=== PATIENT | female | born 2000 | race Caucasian/White ===

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

== ENCOUNTER 2025-03-09 09:33 | Emergency (ER) | payer BC ==
--- OUTSIDE RECORDS SUMMARY | 2025-03-09 09:35 | XMS REPORT | Continuity of Care Document ---
Author Name Unknown Address [address] [place] [address] [facility] Address [address] [place] [address] Care Team Providers Care Director Of Operations Name Role Phone PCP, PATIENT DOES NOT HAVE A Primary Care Physic kvng Unavailable KENZIE PETER Attending Clinician Unavailable KENZIE PETER Attending Clinician Unavailable Doctor Unassigned, Price Attending Clinician U MAHI Wright Attending Clinician Unavailable Payers Payer Name Policy Type Policy Number Effective Date Expirati on Date Source [facility] [id number] 2024 00:00:00 Problems Condition Name Condition Details Condition Category Status Onset Date Resolution Date Last Treatment Date Treating Clinician Comments Source Drug ingestion Drug ingestion Disease Active 02-04 00:00: 00 [facility] Allergies, Adverse Reactions, Alerts Allergy Name Allergy Type Status Severity Reaction(s) Onset Date Inactive Date Treating Clinician Comments Source NO KNOWN ALLERGIE S Drug Class Active [facility] Social History Social Habit Start Date Stop Date Quantity Comments Source Sexual orientation U [facility] Sex Assigned At 2000 00:00:00 2000 00:00:00 [facility] Smoking Status Start Date Stop Date Source Tobacco smoking consumption unknown [facility] Encounters Start Date/Time End Date/Time Encounter Type Admission Type Attending [facility] Facility Care Department Encounter ID Source [id number] 15:00:00 2024-11-13 15:00:00 Outpatient KENZIE NOLAN [facility] [id number] [facility] 2020-01-30 00:00:00 2020-01-30 00:00:00 Patient Secure Msg Doctor Unassigned, Price [facility] [id number] [facility] 2020-01-28 11:40:00 2020-01-28 11:40:00 Outpatient MAHI HERNANDEZ [facility] [id number] [facility]
[2025-03-09] MEDS ORDERED: NA CHLORIDE 0.9% 1,000 ML ONE (09:48)
[2025-03-09] MEDS ORDERED: ONDANSETRON 4 MG/2 ML VIAL ONE ×2 (09:48→11:03)
[2025-03-09 10:12] LABS: Absolute Lymphocytes (CBC) 1.3 K/uL (0.7-4.9); Hematocrit 39.1 % (36.0-45.0); Hemoglobin 13.4 g/dL (12.0-15.0); MCH 31.4 pg (27.0-35.0); MCHC 34.2 g/dL (32.0-36.0); MCV 91.8 fL (80-100); MPV 6.7 fL (7.6-11.3); Nucleated RBC Absolute Count 0.0 (0-0); Nucleated Red Blood Cells % 0.0 % (0-0); RBC Red Blood Cell Count 4.26 M/uL (3.86-4.86); White Blood Count 6.40 thou/uL (4.3-10.9)
[2025-03-09 10:28] LABS: ALT/SGPT 29.0 U/L (13-56); AST/SGOT 14.0 U/L (15-37); Albumin 4.1 g/dL (3.4-5.0); Albumin/Globulin Ratio 1.3 (1.1-1.8); Alkaline Phosphatase 42.0 U/L (45-117); Anion Gap 7.6 mEq/L (5.0-15.0); BUN Blood Urea Nitrogen 8.0 mg/dL (7-18); Globulin 3.2 g/dL (2.3-3.5); Glucose Level 95.0 mg/dL (74-106); Lipase 30.0 U/L (13-75); Potassium 3.6 mEq/L (3.5-5.1)
[2025-03-09 10:59] LABS: Urine Crystals Unidentified Few /HPF (None Seen); Urine Culture Reflex Order NOT NEEDED; Urine Microscopic Reflex YN ORDER UMIC; Urine WBC Clump Rare /HPF (None Seen); Urine Yeast (Budding) Few /HPF (None Seen)
--- NOTE | 2025-03-09 11:11 | EDPHYS ---
Physician Documentation [facility] Name: Zoe Chris Age: 24 yrs Sex: Female : 2000 Arrival Date: 03/09/2025 Time: 09:33 Bed 17 Private MD: ED Physician Ramón Cade HPI: 03/09 10:07 This 24 yrs old Female presents to ER via Ambulatory with complaints of sp3 Nausea/Vomiting, Shortness Of Breath. 10:07 24-year-old female with history of ADHD and anxiety presents to the ED with chief sp3 complaint vomiting and diarrhea after being out last night. Patient states she had 2 drinks which is not abnormal for her. She smokes weed daily. She denies any potential bad food intake. She denies any past surgical history, chest pain, back symptoms, pathology, NEWSPAPER OR PERIODICAL EDITOR symptoms, or any other signs or symptoms on ROS at this time. She is on control.. 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 - Infectious Disease History:: Denies. - Social history:: Smoking status: Reported history of juuling and/or vaping. Patient uses street drugs, marijuana. ROS: 10:08 Constitutional: Negative for fever, chills, and weight loss, Eyes: Negative for injury, sp3 pain, redness, and discharge, Neck: Negative for injury, pain, and swelling, Cardiovascular: Negative for chest pain, palpitations, and edema, Respiratory: Negative for shortness of breath, cough, wheezing, and pleuritic chest pain, Back: Negative for injury and pain, MS/Extremity: Negative for injury and deformity, Skin: Negative for injury, rash, and discoloration, Neuro: Negative for headache, weakness, numbness, tingling, and seizure, Psych: Negative for depression, anxiety, suicide ideation, homicidal ideation, and hallucinations, Allergy/Immunology: Negative for hives, rash, and allergies, Endocrine: Negative for neck swelling, polydipsia, polyuria, polyphagia, and marked weight changes, Hematologic/Lymphatic: Negative for swollen nodes, abnormal bleeding, and unusual bruising, 10:08 All other systems are negative, Exam: 10:08 Constitutional: This is a well developed, well nourished patient who is awake, alert, sp3 and in no acute distress. Head/Face: Normocephalic, atraumatic. Eyes: Pupils equal round and reactive to light, extra-ocular motions intact. Lids and lashes normal. Conjunctiva and sclera are non-icteric and not injected. Cornea within normal limits. Periorbital areas with no swelling, redness, or edema. ENT: Nares patent. No nasal discharge, no septal abnormalities noted. External auditory canals are clear. Oropharynx with no redness, swelling, or masses, exudates, or evidence of obstruction, uvula midline. Mucous membranes moist. Neck: Trachea midline, no thyromegaly or masses palpated, and no cervical lymphadenopathy. Supple, full range of motion without nuchal rigidity, or vertebral point tenderness. No Meningismus. Chest/axilla: Normal chest wall appearance and motion. Nontender with no deformity. No lesions are appreciated. Cardiovascular: Regular rate and rhythm with a normal S1 and S2. No gallops, murmurs, or rubs. Normal PMI, no JVD. No pulse deficits. Respiratory: Lungs have equal breath sounds bilaterally, clear to auscultation and percussion. No rales, rhonchi or wheezes noted. No increased work of breathing, no retractions or nasal flaring. Back: No spinal tenderness. No costovertebral tenderness. Full range of motion. Skin: Warm, dry with normal turgor. Normal color with no rashes, no lesions, and no evidence of cellulitis. MS/ Extremity: Pulses equal, no cyanosis. Neurovascular intact. Full, normal range of motion. Neuro: Awake and alert, GCS 15, oriented to person, place, time, and situation. Cranial nerves II-XII grossly intact. Motor strength 5/5 in all extremities. Sensory grossly intact. Cerebellar exam normal. Normal gait. Psych: Awake, alert, with orientation to person, place and time. Behavior, mood, and affect are within normal limits. 10:08 Abdomen/GI: Mild diffuse tenderness without peritoneal signs, rebound or guarding., Vital Signs: 09:48 BP 107 / 74; Pulse 89; Resp 17; Temp 97.7; Pulse Ox 100% ; Weight 41.28 kg; Height 5 jl7 ft. 1 in. ; Pain 6/10; 10:56 BP 111 / 61; Pulse 64; Resp 15; Pulse Ox 99% ; jl7 09:48 Body Mass Index 17.19 (41.28 kg, 154.94 cm) jl7 09:48 Pain Scale: Adult 7 MDM: 09:40 Medical Screening Exam initiated sp3 10:08 Data reviewed: vital signs, nurses notes, lab test result(s). ED course: 24-year-old sp3 female with nausea, vomiting and diarrhea. Differential diagnosis includes gastritis, foodborne illness, other viral pathology, , marijuana-induced GI pathology, among others. I am not highly suspicious of acute abdomen, surgical emergency or any other critical process at this time. We will obtain general labs, UA and test, and administer normal saline and ondansetron for symptomatic control. Vital signs are normal. If workup negative and patient is improved, we will safely discharge patient home. Consider imaging if abnormalities found or patient worsens.. 11:10 ED course: Full workup negative. Patient is feeling better. Will give 1 additional sp3 ondansetron dose prior to discharge.. 03/09 09:47 Order name: CBC with Diff; Complete Time: 10:44 sp3 03/09 09:47 Order name: CMP; Complete Time: 10:44 sp3 03/09 09:47 Order name: Lipase; Complete Time: 10:44 sp3 03/09 09:47 Order name: Lactate w/ 2H reflex if indic.; Complete Time: 10:44 sp3 03/09 09:48 Order name: UA Rfx Elliot Cult if indicated; Complete Time: 11:08 sp3 03/09 09:48 Order name: Test, Urine; Complete Time: 11:08 sp3 03/09 09:47 Order name: IV Saline Lock; Complete Time: 09:59 sp3 03/09 09:47 Order name: Labs collected and sent; Complete Time: 09:59 sp3 Administered Medications: 10:15 Drug: Ondansetron IVP 4 mg IVP once; over 2 minutes Route: IVP; Site: left antecubital; [facility] 10:45 Follow up: Response: No adverse reaction; Nausea is decreased jl7 10:15 Drug: NS 0.9% IV 1000 ml IV at 1 bolus Per protocol; to be given as a bolus over 60 jl7 minutes Route: IV; Rate: 1 bolus; Site: left antecubital; 11:13 Follow up: Response: No adverse reaction; IV Status: Completed infusion; IV Intake: jl7 1000ml 11:13 Drug: Ondansetron IVP 4 mg IVP once; over 2 minutes Route: IVP; Site: left antecubital; jl7 11:21 Follow up: Response: No adverse reaction; Nausea is decreased jl7 Disposition Summary: 03/09/25 11:11 Discharge Ordered Notes: Location: Home sp3 Condition: Stable sp3 Diagnosis - Vomiting, dehydration sp3 Followup: sp3 - With: Private Physician - When: Upon discharge from the Emergency Department - Reason: Continuance of care Discharge Instructions: - Discharge Summary Sheet sp3 - Vomiting, Adult sp3 Forms: - Medication Reconciliation Form sp3 - Antibiotic Education sp3 - Prescription Opioid Use sp3 - Patient Portal Instructions sp3 - Leadership Thank You Letter sp3 Prescriptions: - ondansetron 4 mg Oral Tablet,disintegrating - take 1 tablet ORAL route every 12 hours as needed for nausea and vomiting; 15 sp3 tablet; Refills: 0, Product Selection Permitted Signatures: Dispatcher [employer] Natalya Estrella RN RN jl7 Ramón Cade MD MD sp3 Corrections: (The following items were deleted from the chart) 09:50 09:49 Allergies: No Known Drug Intolerances; jl7 jl7
--- NOTE | 2025-03-09 11:11 | ER ---
Nurse's Notes [facility] Name: Zoe Chris Age: 24 yrs Sex: Female : 2000 Arrival Date: 03/09/2025 Time: 09:33 Bed 17 Private MD: Diagnosis: Vomiting, dehydration Presentation: 03/09 09:48 Chief complaint: Patient states: N/V/D since 0630. Coronavirus screen: At this time, [facility] the client does not indicate any symptoms associated with coronavirus-19. Ebola Screen: No symptoms or risks identified at this time. Initial Sepsis Screen: Does the patient meet any 2 criteria? No. Patient's initial sepsis screen is negative. Does the patient have a suspected source of infection? No. Patient's initial sepsis screen is negative. Risk Assessment: Do you want to hurt yourself or someone else? Patient reports no desire to harm self or others. Onset of symptoms was March 09, 2025 at 06:30. 09:48 Method Of Arrival: Ambulatory [facility] 09:48 Acuity: LINO 3 jl7 Triage Assessment: 09:49 General: Appears in no apparent distress. uncomfortable, ill, Behavior is calm, jl7 cooperative. Pain: Complains of pain in epigastric area Pain currently is 6 out of 10 on a pain scale. GI: Reports diarrhea, nausea, vomiting. Derm: Skin is dry, Skin is pale, Skin temperature is cool. 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 - Infectious Disease History:: Denies. - Social history:: Smoking status: Reported history of juuling and/or vaping. Patient uses street drugs, marijuana. Screenin:15 [facility] ED Fall Risk Assessment (Adult) History of falling in the last 3 months, jl7 including since admission No falls in past 3 months (0 pts) Confusion or Disorientation No (0 pts) Intoxicated or Sedated No (0 pts) Impaired Gait No (0 pts) Mobility Assist Device Used No (0 pt) Altered Elimination No (0 pt) Score/Fall Risk Level 0 - 2 = Low Risk Oriented to surroundings, Maintained a safe environment. Abuse screen: Denies threats or abuse. Denies injuries from another. Nutritional screening: No deficits noted. Tuberculosis screening: No symptoms or risk factors identified. Assessment: 10:15 Reassessment: pt unable to provide urine sample at this time. jl7 10:15 GI: Reports diarrhea, nausea, vomiting. jl7 11:14 Reassessment: Patient appears in no apparent distress at this time. Patient and/or jl7 family updated on plan of care and expected duration. Pain level reassessed. Patient is alert, oriented x 3, equal unlabored respirations, skin warm/dry/pink. reports mild continued nausea, VO for 4 mg Zofran IVP, medicated as ordered Patient states feeling better. Vital Signs: 09:48 BP 107 / 74; Pulse 89; Resp 17; Temp 97.7; Pulse Ox 100% ; Weight 41.28 kg; Height 5 jl7 ft. 1 in. ; Pain 6/10; 10:56 BP 111 / 61; Pulse 64; Resp 15; Pulse Ox 99% ; jl7 09:48 Body Mass Index 17.19 (41.28 kg, 154.94 cm) jl7 09:48 Pain Scale: Adult jl7 ED Course: 09:35 Patient arrived in ED. ts1 09:37 Ramón Cade MD is Attending Physician. sp3 09:48 Natalya Cornejo RN is Primary Nurse. jl7 09:49 Triage completed. jl7 09:49 Arm band placed on right wrist. jl7 09:59 Inserted saline lock: 20 gauge in left antecubital area, using aseptic technique. Blood ts3 collected. Flushed with 10 mL NS. 09:59 Initial lab(s) drawn, by optical laboratory mechanic, sent to lab. ts3 10:15 Patient has correct armband on for positive identification. Provided Education on: use jl7 of call oliver. 10:42 Urine collected: clean catch specimen, sent to lab. ts3 11:20 No provider procedures requiring assistance completed. IV discontinued, intact, jl7 bleeding controlled, No redness/swelling at site. Pressure dressing applied. Administered Medications: 10:15 Drug: Ondansetron IVP 4 mg IVP once; over 2 minutes Route: IVP; Site: left antecubital; jl7 10:45 Follow up: Response: No adverse reaction; Nausea is decreased jl7 10:15 Drug: NS 0.9% IV 1000 ml IV at 1 bolus Per protocol; to be given as a bolus over 60 jl7 minutes Route: IV; Rate: 1 bolus; Site: left antecubital; 11:13 Follow up: Response: No adverse reaction; IV Status: Completed infusion; IV Intake: jl7 1000ml 11:13 Drug: Ondansetron IVP 4 mg IVP once; over 2 minutes Route: IVP; Site: left antecubital; jl7 11:21 Follow up: Response: No adverse reaction; Nausea is decreased jl7 Medication: 11:21 VIS not applicable for this client. jl7 Intake: 11:13 IV: 1000ml; Total: 1000ml. jl7 Outcome: 11:11 Discharge ordered by . srinivas 11:20 Discharged to home ambulatory, jl7 11:20 Condition: stable 11:20 Discharge instructions given to patient, family, Instructed on discharge instructions, follow up and referral plans. medication usage, Demonstrated understanding of instructions, follow-up care, medications, Prescriptions given X 1, 11:21 Patient left the ED. jl7 Signatures: Natalya Cornejo RN RN jl7 Ramón Cade MD MD sp3 Catrachita Petersen PAS PAS ts1 Alba Montes De Oca ts3 Corrections: (The following items were deleted from the chart) 09:50 09:49 Allergies: No Known Drug Intolerances; jl7 jl7
[2025-03-09 15:49] VITALS: TEMP 97.7
[2025-03-09 15:52] VITALS: BP 111/61; O2SAT 99
== END 2025-03-09 11:21 | disposition home or self-care (01) ==
LOC: ER 09:33
DX: E86.0 Dehydration (principal)
CPT/HCPCS: 96361; 85025; 81001; 36415; 81025; 83605; 83690; 80053; 96374; 99284; J2405 ×2; J7030